=== PATIENT | female | born 1945 | race Caucasian/White ===

== ENCOUNTER 2017-03-25 10:02 | Emergency (ER) | payer MEDICARE, OTHER ==
[~2017-03-25] VITALS: Ht 162.6 cm; Wt 59.0 kg
[~2017-03-25 10:02] MED LIST: DOCU-94 PO; LEV25T PO; SENN-58 PO; TEMA30CA PO
[2017-03-25 13:30] LABS: Basophils # (auto) 0.1 uL; Basophils % (auto) 0.6 % (0.0-2.0); Eosinophils # (auto) 0.2 uL; Eosinophils % (auto) 2.6 % (0.0-7.0); Hematocrit 43.7 % (36.0-46.0); Hemoglobin 14.8 g/dL (12.2-16.2); Lymphocytes # (auto) 3.4 uL; Lymphocytes % (auto) 37.8 % (10.0-50.0); Mean Corpuscular Hemoglobin 30.9 pg (28.0-32.0); Mean Corpuscular Hgb Conc. 33.9 g/dL (32.0-36.0); Mean Corpuscular Volume 91.1 fL (80.0-100.0); Mean Platelet Volume 7.7 fL (6.9-10.8); Monocytes # (auto) 0.4 uL; Monocytes % (auto) 4.6 % (0.0-12.0); Neutrophils # (auto) 4.9 uL; Neutrophils % (auto) 54.4 % (37.0-80.0); Nucleated Red Blood Cells % 0.6 %; Platelet Count (auto) 371 10^3/uL (140-450); Red Cell Distribution Width 13.3 % (11.8-14.3)
[2017-03-25 13:56] LABS: Albumin 3.6 g/dL (3.4-5.0); Bilirubin, Total 0.4 mg/dL (0.2-1.0); Calcium 9.1 mg/dL (8.5-10.1); Potassium 4.2 mmol/L (3.5-5.1); Total Protein 7.4 g/dL (6.4-8.2)
[2017-03-25 15:26] VITALS: BP 154/95
== END 2017-03-25 16:32 | disposition home or self-care (01) ==
LOC: EDBD 10:02 → ER 10:02
DX: L30.9 Dermatitis, unspecified (principal); E78.5 Hyperlipidemia, unspecified; E07.9 Disorder of thyroid, unspecified; Z88.0 Allergy status to penicillin; Z79.899 Other long term (current) drug therapy
CPT/HCPCS: 36415; 80053; 85025

== ENCOUNTER 2018-08-26 10:14 | Emergency (ER) | payer MEDICARE, MEDICAID ==
[~2018-08-26] VITALS: Ht 162.6 cm; Wt 59.0 kg
[2018-08-26 10:21] VITALS: BP 157/92
[2018-08-26] MEDS ORDERED: SODIUM CHLORIDE 0.9% 1,000 ML IV ONE ×2 (10:21)
[2018-08-26 11:31] LABS: Basophils # (auto) 0.1 uL; Basophils % (auto) 1.1 % (0.0-2.0); Eosinophils # (auto) 0.1 uL; Eosinophils % (auto) 1.1 % (0.0-7.0); Hematocrit 41.8 % (36.0-46.0); Hemoglobin 14.4 g/dL (12.2-16.2); Lymphocytes # (auto) 2.4 uL; Mean Corpuscular Hemoglobin 30.5 pg (28.0-32.0); Mean Corpuscular Hgb Conc. 34.5 g/dL (32.0-36.0); Mean Corpuscular Volume 88.2 fL (80.0-100.0); Monocytes # (auto) 0.4 uL; Monocytes % (auto) 5.1 % (0.0-12.0); Neutrophils # (auto) 5.6 uL; Neutrophils % (auto) 64.7 % (37.0-80.0); Platelet Count (auto) 440 10^3/uL (140-450); Red Blood Cells 4.74 10^6/uL (4.0-5.20); Red Cell Distribution Width 13.3 % (11.8-14.3); White Blood Cell 8.6 10^3/uL (4.4-10.8)
[2018-08-26 11:50] LABS: Albumin 3.9 g/dL (3.4-5.0); Anion Gap 6 (5-15); Blood Urea Nitrogen 9 mg/dL (7-18); Calcium 9.1 mg/dL (8.5-10.1); Carbon Dioxide 28 mmol/L (21-32); Chloride 97 mmol/L (98-107); Glucose 124 mg/dL (74-106); Potassium 4.3 mmol/L (3.5-5.1); Sodium 131 mmol/L (136-145)
[2018-08-26 11:55] LABS: Alanine Aminotransferase 24 U/L (13-56); Alkaline Phosphatase 77 U/L (45-117); Aspartate Aminotransferase 16 U/L (15-37); BUN/Creatinine Ratio 18.8; Bilirubin, Total 0.3 mg/dL (0.2-1.0); GFR African American 162 mL/min; GFR Non-African American 134 mL/min; Total Protein 7.6 g/dL (6.4-8.2)
--- NOTE | 2018-08-26 13:38 | NUR ---
assessment Per ss consult [facility] for safety and PT eval. MON order sent to [facility]. Addendum: 08/26/18 at 1339 by Araceli RAMOS Amended: Links added. Addendum: 08/26/18 at 1345 by Araceli RAMOS amend above note. order sent to [facility].
--- NOTE | 2018-08-26 13:40 | NUR ---
re-assessment Per Tom patients son Juan Luis to be contacted. order sent to [facility]. 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 Addendum: 08/26/18 at 1342 by Araceli RAMOS Amended: Links added.
--- NOTE | 2018-08-26 15:50 | NUR ---
re-assessment Per [place] at [facility] will start on 08/27/18. Addendum: 08/26/18 at 1550 by Araceli RAMOS Amended: Links added.
== END 2018-08-26 14:31 | disposition home or self-care (01) ==
LOC: EDUNIT# 10:14 → EDBD 10:14 → ER 10:26 → EDUNIT# 10:26 → EDBD 10:26 → ER 14:31
DX: S16.1XXA Strain of muscle, fascia and tendon at neck level, initial encounter (principal); I10 Essential (primary) hypertension; W06.XXXA Fall from bed, initial encounter; Y93.89 Activity, other specified; Y99.8 Other external cause status; Y92.89 Other specified places as the place of occurrence of the external cause
CPT/HCPCS: 36415; 70450; 71045; 72125; 80053; 84484; 85025; 94761; 99284; J7030

== ENCOUNTER 2019-03-01 19:09 | Emergency (ER) | payer MEDICARE, OTHER ==
[~2019-03-01] VITALS: Ht 177.8 cm; Wt 61.2 kg
[2019-03-01 20:05] LABS: Basophils # (auto) 0.1 uL; Basophils % (auto) 0.8 % (0.0-2.0); Eosinophils # (auto) 0.1 uL; Eosinophils % (auto) 0.6 % (0.0-7.0); Hemoglobin 14.3 g/dL (12.2-16.2); Lymphocytes # (auto) 2.9 uL; Lymphocytes % (auto) 21.2 % (10.0-50.0); Mean Corpuscular Hemoglobin 30.4 pg (28.0-32.0); Mean Corpuscular Volume 89.3 fL (80.0-100.0); Monocytes # (auto) 0.8 uL; Monocytes % (auto) 5.7 % (0.0-12.0); Neutrophils # (auto) 9.7 uL; Neutrophils % (auto) 71.7 % (37.0-80.0); Nucleated Red Blood Cells % 0.1 %; Platelet Count (auto) 425 10^3/uL (140-450); Red Cell Distribution Width 13.2 % (11.8-14.3); White Blood Cell 13.5 10^3/uL (4.4-10.8)
[2019-03-01 20:25] LABS: Albumin 3.7 g/dL (3.4-5.0); BUN/Creatinine Ratio 12.9; Calcium 9.4 mg/dL (8.5-10.1); Potassium 4.4 mmol/L (3.5-5.1)
[2019-03-01 20:29] LABS: Bilirubin, Total 0.4 mg/dL (0.2-1.0); Total Protein 7.6 g/dL (6.4-8.2)
[2019-03-01] MEDS ORDERED: FLEET ENEMA(ADULT) 135 ML PR ONE (22:15)
[2019-03-01] MEDS ORDERED: GLYCERIN ADULT RECTAL SUPP PR ONE (22:15)
[2019-03-02] MEDS ORDERED: MAGNESIUM CITRATE SOLUTION 300 ML BTL PO ONE (02:15)
[2019-03-02 11:05] VITALS: BP 117/66
== END 2019-03-02 12:45 | disposition home or self-care (01) ==
LOC: EDUNIT# 19:09 → ER 19:09 → EDBD 19:09 → ER 03-02 12:45
DX: K59.00 Constipation, unspecified (principal); I10 Essential (primary) hypertension; Z74.01 Bed confinement status; Z88.0 Allergy status to penicillin; Z79.899 Other long term (current) drug therapy
CPT/HCPCS: 36415; 71045; 74176; 80053; 83690; 83735; 85025; 93005

== ENCOUNTER 2021-09-01 20:23 | Inpatient (IN) | payer MEDICARE, OTHER ==
[~2021-09-01] VITALS: Ht 170.2 cm; Wt 49.1 kg
[2021-09-01] MEDS ORDERED: SODIUM CHLORIDE 0.9% 500 ML IVB ONE (20:45)
[2021-09-01] MEDS ORDERED: MORPHINE SULFATE 4 MG/ML SYR/VIAL IV ONE (20:45)
[2021-09-01] MEDS ORDERED: ONDANSETRON HCL 4 MG/2 ML VIAL IV ONE (20:45)
[2021-09-01 21:21] LABS: Basophils # (auto) 0.3 10 ^3/uL (0-0.2); Basophils % (auto) 2.6 % (0.0-2.0); Eosinophils # (auto) 0.2 10 ^3/uL (0-0.8); Eosinophils % (auto) 1.7 % (0.0-7.0); Hematocrit 34.2 % (36.0-46.0); Lymphocytes # (auto) 1.7 10 ^3/uL (0.4-5.4); Lymphocytes % (auto) 15.8 % (10.0-50.0); Mean Corpuscular Hemoglobin 31.6 pg (28.0-32.0); Mean Corpuscular Volume 90.3 fL (80.0-100.0); Monocytes # (auto) 0.5 10 ^3/uL (0-1.3); Monocytes % (auto) 5.1 % (0.0-12.0); Neutrophils # (auto) 7.9 10 ^3/uL (1.6-8.6); Neutrophils % (auto) 74.8 % (37.0-80.0); Nucleated Red Blood Cells % 0.1 %; Red Blood Cells 3.79 10^6/uL (4.0-5.20); Red Cell Distribution Width 12.5 % (11.8-14.3); White Blood Cell 10.5 10^3/uL (4.4-10.8)
[2021-09-01 21:40] LABS: Albumin 3.1 g/dL (3.4-5.0); Amylase 39 U/L (25-115); Anion Gap 10 (5-15); BUN/Creatinine Ratio 27.1; Blood Urea Nitrogen 13 mg/dL (7-18); Calcium 8.7 mg/dL (8.5-10.1); Carbon Dioxide 23 mmol/L (21-32); Chloride 97 mmol/L (98-107); GFR African American 161 mL/min; GFR Non-African American 133 mL/min; Glucose 118 mg/dL (74-106); Lipase 73 U/L (73-393); Potassium 4.2 mmol/L (3.5-5.1); Sodium 130 mmol/L (136-145)
[2021-09-01 21:43] LABS: Alanine Aminotransferase 28 U/L (13-56); Alkaline Phosphatase 60 U/L (45-117); Aspartate Aminotransferase 27 U/L (15-37); Bilirubin, Total 0.3 mg/dL (0.2-1.0); Total Protein 6.6 g/dL (6.4-8.2)
[2021-09-02] MEDS ORDERED: ONDANSETRON HCL 4 MG/2 ML VIAL IV PRN (03:00)
[2021-09-02] MEDS ORDERED: ACETAMINOPHEN 325 MG TAB PO PRN (03:00)
[2021-09-02] MEDS ORDERED: HYDROcodone-ACET 5/325MG TAB PO PRN (03:00)
[2021-09-02] MEDS ORDERED: FLEET ENEMA(ADULT) 135 ML PR ONE (03:00)
[2021-09-02 06:02] LABS: Urine Bacteria FEW /hpf (None Seen); Urine Blood Negative /uL (Negative); Urine Specific Gravity 1.004 (1.001-1.035); Urine WBC 1 /hpf (0 - 5)
[2021-09-02] MEDS: LEVOTHYROXINE SODIUM 25 MCG TAB PO SCH (07:08)
[2021-09-02] MEDS ORDERED: ENALAPRIL MALEATE 10 MG TAB PO SCH (10:00)
[2021-09-02] MEDS: DOCUSATE SOD 100 MG CAP PO SCH ×2 (10:25→21:32)
[2021-09-02] MEDS: ENOXAPARIN SOD 40 MG/0.4 ML SYRINGE SC SCH (10:26)
[2021-09-02] MEDS: PANTOPRAZOLE 40 MG TAB PO SCH (10:26)
[2021-09-02] MEDS ORDERED: LACTULOSE 20Gm/30ML SOLN PO PRN (14:45)
[2021-09-02] MEDS ORDERED: cefTRIAXone 1GM/50ML D5W 50 ML IV ONE (14:45)
[2021-09-02 17:00] VITALS: BP 133/72
[2021-09-02] MEDS: metroNIDAZOLE 500MG/100ML 100 ML IV SCH (21:31)
[2021-09-02 21:53] VITALS: BP_SYST 138; BP_SYST 154; BP_DIAS 66; BP_DIAS 81
[2021-09-02] MEDS ORDERED: ATORVASTATIN 20 MG TAB PO SCH (22:00)
[2021-09-03] VITALS (7 sets, daily range): BP systolic 115–168; BP diastolic 60–81
[2021-09-03] MEDS: metroNIDAZOLE 500MG/100ML 100 ML IV SCH ×3 (05:54→21:38)
[2021-09-03] MEDS: LEVOTHYROXINE SODIUM 25 MCG TAB PO SCH (05:54)
[2021-09-03] MEDS: ENOXAPARIN SOD 40 MG/0.4 ML SYRINGE SC SCH (08:47)
[2021-09-03] MEDS: cefTRIAXone 1GM/50ML D5W 50 ML IV SCH (08:47)
[2021-09-03] MEDS: DOCUSATE SOD 100 MG CAP PO SCH ×2 (08:47→21:38)
[2021-09-03] MEDS: PANTOPRAZOLE 40 MG TAB PO SCH (08:47)
[2021-09-03 10:30] LABS: Basophils # (auto) 0 10 ^3/uL (0-0.2); Basophils % (auto) 0.7 % (0.0-2.0); Eosinophils # (auto) 0.1 10 ^3/uL (0-0.8); Eosinophils % (auto) 2.2 % (0.0-7.0); Hematocrit 34.5 % (36.0-46.0); Hemoglobin 11.7 g/dL (12.2-16.2); Lymphocytes % (auto) 29.6 % (10.0-50.0); Mean Corpuscular Hemoglobin 30.8 pg (28.0-32.0); Mean Corpuscular Hgb Conc. 33.9 g/dL (32.0-36.0); Mean Corpuscular Volume 90.8 fL (80.0-100.0); Monocytes # (auto) 0.4 10 ^3/uL (0-1.3); Monocytes % (auto) 6.6 % (0.0-12.0); Neutrophils # (auto) 4.2 10 ^3/uL (1.6-8.6); Neutrophils % (auto) 60.9 % (37.0-80.0); Nucleated Red Blood Cells % 0.1 %; Red Cell Distribution Width 12.5 % (11.8-14.3); White Blood Cell 6.8 10^3/uL (4.4-10.8)
[2021-09-03 11:00] LABS: Albumin 2.9 g/dL (3.4-5.0); Calcium 8.5 mg/dL (8.5-10.1); Magnesium 2.3 mg/dL (1.6-2.6); Potassium 3.8 mmol/L (3.5-5.1)
[2021-09-03 11:04] LABS: BUN/Creatinine Ratio 19.1; Bilirubin, Total 0.3 mg/dL (0.2-1.0); Total Protein 6.5 g/dL (6.4-8.2)
[2021-09-04 05:00] VITALS: BP 123/66
[2021-09-04] MEDS: metroNIDAZOLE 500MG/100ML 100 ML IV SCH ×3 (06:35→22:16)
[2021-09-04] MEDS: LEVOTHYROXINE SODIUM 25 MCG TAB PO SCH (06:35)
[2021-09-04 08:00] VITALS: BP 122/69
[2021-09-04 09:03] VITALS: BP 120/69
[2021-09-04] MEDS: ENOXAPARIN SOD 40 MG/0.4 ML SYRINGE SC SCH (09:32)
[2021-09-04] MEDS: cefTRIAXone 1GM/50ML D5W 50 ML IV SCH (09:32)
[2021-09-04] MEDS: DOCUSATE SOD 100 MG CAP PO SCH ×2 (09:32→22:16)
[2021-09-04 12:50] VITALS: BP 123/65
[2021-09-04] MEDS: POTASSIUM CHL 20 Meq TABLET PO SCH ×2 (14:00→14:22)
[2021-09-04 16:32] VITALS: BP 122/73
[2021-09-04 22:00] VITALS: BP 109/73
[2021-09-05 05:00] VITALS: BP 139/74
[2021-09-05] MEDS: LEVOTHYROXINE SODIUM 25 MCG TAB PO SCH (05:51)
[2021-09-05] MEDS: metroNIDAZOLE 500MG/100ML 100 ML IV SCH ×2 (05:51→13:56)
[2021-09-05 09:00] VITALS: BP 131/75
[2021-09-05] MEDS: cefTRIAXone 1GM/50ML D5W 50 ML IV SCH (09:00)
[2021-09-05] MEDS ORDERED: CIPR500T4 PO (09:37)
[2021-09-05] MEDS: ENOXAPARIN SOD 40 MG/0.4 ML SYRINGE SC SCH (10:00)
[2021-09-05] MEDS: DOCUSATE SOD 100 MG CAP PO SCH (10:00)
[2021-09-05 13:00] VITALS: BP 129/91
[2021-09-05 17:00] VITALS: BP 123/74
[2021-09-05 19:45] VITALS: BP 122/74
[2021-09-05 20:00] VITALS: BP 122/69
== END 2021-09-05 19:55 | disposition home or self-care (01) | DRG 389 ==
LOC: ER 20:23 → EDBD 20:23 → OVERFLOW 09-02 02:53 → WEST WING 09-02 16:50
PROVIDERS: ADMIT Nurse Practitioner; ATTEND Internal Medicine Nephrology
DX: K56.41 Fecal impaction (principal); N39.0 Urinary tract infection, site not specified; E03.9 Hypothyroidism, unspecified; E78.5 Hyperlipidemia, unspecified; I10 Essential (primary) hypertension; B96.20 Unspecified Escherichia coli [E. coli] as the cause of diseases classified elsewhere; Z20.822 Contact with and (suspected) exposure to COVID-19; Z74.01 Bed confinement status; Z90.81 Acquired absence of spleen; Z90.49 Acquired absence of other specified parts of digestive tract; Z90.710 Acquired absence of both cervix and uterus; Z87.820 Personal history of traumatic brain injury; Z83.3 Family history of diabetes mellitus; Z87.442 Personal history of urinary calculi; Z88.0 Allergy status to penicillin
CPT/HCPCS: 36415; 74176; 80053; 81001; 82150; 82306; 83690; 83735; 84132; 84443; 85025; 87086; 87088; 87186; 93005; 96361; 96365; 96372; 96375; G0378; J0696; J2405; J3490

== ENCOUNTER 2022-10-06 13:19 | Emergency (ER) | payer OTHER ==
[~2022-10-06] VITALS: Ht 175.3 cm; Wt 86.3 kg
[~2022-10-06 13:19] MED LIST changes: +CIPR-173 PO; +CIPR500T4 PO; +SENN-208 PO
[2022-10-06 18:09] VITALS: BP 131/82
== END 2022-10-06 19:39 | disposition home or self-care (01) ==
LOC: ER 13:19 → EDBD 13:19 → ER 19:37
DX: S09.8XXA Other specified injuries of head, initial encounter (principal); I10 Essential (primary) hypertension; E78.5 Hyperlipidemia, unspecified; Z88.0 Allergy status to penicillin; Z79.899 Other long term (current) drug therapy; W18.39XA Other fall on same level, initial encounter; Y93.89 Activity, other specified; Y92.098 Other place in other non-institutional residence as the place of occurrence of the external cause; Y99.8 Other external cause status
CPT/HCPCS: 70450; 74176

== ENCOUNTER 2024-03-28 16:21 | Emergency (ER) | payer OTHER, MEDICAID ==
[~2024-03-28] VITALS: Ht 170.2 cm; Wt 54.5 kg
[2024-03-28] MEDS: SODIUM CHLORIDE 0.9% 1,000 ML IV ONE (16:30)
[2024-03-28] MEDS: MORPHINE SULFATE 4 MG/ML SYR/VIAL IV ONE (16:30)
[2024-03-28] MEDS: ONDANSETRON HCL 4 MG/2 ML VIAL IV ONE (16:30)
--- NOTE | 2024-03-28 16:30 | ECG ---
[facility] Test Date: 2024-03-28 Test Time: 16:26:07 Pat Name: VINH GOLDSTEIN Department: ER Room: Gender: F Patient Support Representative: NISSA : 1945 Requested By: EMERGENCY EMERGENCY Order Number: [id number] Reading MD: Travon Ruiz Measurements Intervals [place] Rate: 100 P: 74 [place]: 130 QRS: 104 QRSD: 76 T: 52 QT: 327 QTc: 422 Interpretive Statements Sinus tachycardia Right atrial enlargement Right axis deviation Electronically Signed On 03-31-2024 10:24:12 PST by Travon Ruiz Please click the below link to view image of tracing.
--- NOTE | 2024-03-28 16:49 | ED.PDOC ---
GI ASSESSMENT HPI Comments 78 Y F BIBJosefina, with PMHX of HTN, HLD, hyperthyroidism, and bowel blockages presents to the ED with CC of abdominal pain. Per EMS, patient has been experiencing ABD pain since 03/27/24 with intermittent vomiting. Per EMS patient's daughter states that she has dark foul vomit, which she believes can be associated with a bowel blockage; as patient has experienced episodes like this in the past. Patient denies tobacco usage, ETOH, or illicit drugs. Time Seen by MD: 16:30 Primary Care Provider: CHANTALE Reviewed Notes: Nurses Notes, Cost Report Clerk Notes, Medications, Allergies Allergies: Coded Allergies: Penicillin G (Verified Allergy, Unknown, 08/26/13) Home Meds Active Scripts Sennosides-Docusate Sodium (Senna-Plus) 1 Tab Tab, 2 TAB PO qhs for 10 Days, #20 TAB Prov:HARRISON ARMSTRONG MD 01/17/22 Ciprofloxacin Hcl (Cipro) 500 Mg Tab, 1 TAB PO BID for 7 Days, #14 TAB Prov:HARRISON ARMSTRONG MD 01/17/22 Ciprofloxacin Hcl (Ciprofloxacin Hcl) 500 Mg Tab, 1 TAB PO BID for 5 Days, #10 TAB Prov:RACHELLE ROMERO MD 09/05/21 Senna (Senokot) 8.6 Mg Tab, 1 TAB PO BID, #40 TAB [facility] 01/16/17 Docusate Sodium (Colace) 100 Mg Cap, 1 CAP PO BID, #60 CAP 2 Refills [facility] 01/16/17 Reported Medications Temazepam (Temazepam) 30 Mg Cap, 1 CAP PO HS, #30 CAP 1 Refill 09/07/16 Levothyroxine Sodium (Levothyroxine Sodium) 25 Mcg Tab, 0 PO DAILY, TAB 09/07/16 Information Source: Patient Mode of Arrival: EMS Timing: Hours Duration: Since onset Prehospital treatment: None Vomitus: Tarry Black Severity: Mild Recent: None Recent Hx of: None Pain Location: Epigastric Modifying Factors: Nothing Associated sign and symptoms: Vomiting Past Medical History PAST MEDICAL HISTORY: High Lipids, HTN Surgical History: Denies all surgeries HOUSING SPECIALIST History: No Pertinent HOUSING SPECIALIST History Family History Family History: Unobtainable Social History Smoker: Non-Smoker Alcohol: Denies ETOH Use Drugs: Denies Drug Use Lives In: Home Constitutional: denies: chills, diaphoresis, fatigue, fever, malaise, sweats, weakness, others EENTM: denies: blurred vision, double vision, ear bleeding, ear discharge, ear drainage, ear pain, ear ringing, eye pain, eye redness, hearing loss, mouth pain, mouth swelling, nasal discharge, nose bleeding, nose congestion, nose pain, photophobia, tearing, throat pain, throat swelling, voice changes, others Respiratory: denies: cough, hemoptysis, orthopnea, SOB at rest, shortness of breath, SOB with excertion, stridor, wheezing, others Cardiovascular: denies: chest pain, dizzy spells, diaphoresis, Dyspnea on exertion, edema, irregular heart beat, left arm pain, lightheadedness, palpitations, PND, syncope, others Gastrointestinal: reports: abdominal pain, vomiting; denies: abdomen distended, blood streaked bowels, constipated, diarrhea, dysphagia, difficulty swallowing, hematemesis, melena, nausea, poor appetite, poor fluid intake, rectal bleeding, rectal pain, others Genitourinary: denies: abnormal vagina bleeding, burning, dyspareunia, dysuria, flank pain, frequency, hematuria, incontinence, pain, , vagina discharge, urgency, others Neurological: denies: dizziness, fainting, headache, left sided numbness, left sided weakness, numbness, paresthesia, pre-existing deficit, right sided numbness, right sided weakness, seizure, speech problems, tingling, tremors, weakness, others Musculoskeletal: denies: back pain, gout, joint pain, joint swelling, muscle pain, muscle stiffness, neck pain, others Integumetry: denies: bruises, change in color, change in hair/nails, dryness, laceration, lesions, lumps, rash, wounds, others Allergic/Immunocompromised: denies: Difficulty Healing, Frequent Infections, Hives, Itching, others Hematologic/Lymphatic: denies: anemia, blood clots, easy bleeding, easy bruising, swollen glands, others Endocrine: denies: excessive hunger, excessive sweating, excessive thirst, excessive urination, flushing, intolerance to cold, intolerance to heat, unexplained weight gain, unexplained weight loss, others Psychiatric: denies: anxiety, bipolar disorder, depression, hopeless, panic disorder, schizophrenia, sleepless, suicidal, others All Other Systems: Reviewed and Negative Physical Exam General Appearance: No Apparent Distress, Normal HEENT: Normal ENT Inspection, Pharynx Normal, TMs Normal Neck: Full Range of Motion, Non-Tender, Normal, Normal Inspection Respiratory: Chest Non-Tender, Lungs Clear, No Accessory Muscle Use, No Respiratory Distress, Normal Breath Sounds Cardiovascular: No Edema, No JVD, No Murmur, No Gallop, Normal Peripheral Pulses, Regular Rate/Rhythm Breast Exam: Deferred Gastrointestinal: Diffuse (abdominal tenderness), No Organomegaly, Non Tender, No Pulsatile Mass, Normal Bowel Sounds, Soft Genitalia: Deferred Pelvic: Deferred Rectal: Deferred Extremities: No calf tenderness, Normal capillary refill, Normal inspection, Normal range of motion, Non-tender, No pedal edema Musculoskeletal : Location: Left Extremity Location: Arm (left arm amputee ) Apperance: Normal Neurologic: Alert, dental surgeon II-XII nml as Tested, No Motor Deficits, Normal Affect, Normal Mood, No Sensory Deficits Cerebellar Function: Normal Reflexes: Normal Skin: Dry, Normal Color, Warm Lymphatic: No Adenopathy EKG EKG : Pulse Rate (adult): 100 [place]: Normal Cardiac Rhythm: ST Block: None Hypertrophy: None ST: Normal Was a procedure done? Was a procedure done?: No GI differential Dx Differential Diagnosis: Bowel Obstruction, Gastroenteritis, Dehydration, Electrolyte Imbalance, Food Poisoning, Bacterial, Viral, Impaction X-Ray, Labs, Meds, VS Vital Signs Date Time Temp Pulse Resp B/P (MAP) Pulse Ox O2 Delivery O2 Flow Rate FiO2 03/28/24 17:30 100 17 96 Room Air* 0 21 03/28/24 17:30 97.9 100 17 116/70 (85) 98 97.9 03/28/24 17:00 99 17 116/70 03/28/24 16:49 100 03/28/24 16:30 100 18 116/70 03/28/24 16:30 97.9 101 16 116/70 (85) 98 03/28/24 16:26 100 Lab Test 03/28/24 18:22 03/28/24 17:06 Range/Units Troponin I High Sensitivity 14 11 </=34 ng/L White Blood Count 13.9 H 4.4-10.8 10^3/uL Red Blood Count 4.88 4.0-5.20 10^6/uL Hemoglobin 15.1 12.2-16.2 g/dL Hematocrit 44.5 36.0-46.0 % Mean Corpuscular Volume 91.1 80.0-100.0 fL Mean Corpuscular Hemoglobin 31.0 28.0-32.0 pg Mean Corpuscular Hemoglobin Concent 34.1 32.0-36.0 g/dL Red Cell Distribution Width 13.4 11.8-14.3 % Platelet Count 343 140-450 10^3/uL Mean Platelet Volume 7.7 6.9-10.8 fL Neutrophils (%) (Auto) 87.7 H 37.0-80.0 % Lymphocytes (%) (Auto) 8.8 L 10.0-50.0 % Monocytes (%) (Auto) 3.3 0.0-12.0 % Eosinophils (%) (Auto) 0.0 0.0-7.0 % Basophils (%) (Auto) 0.2 0.0-2.0 % Neutrophils # (Auto) 12.2 H 1.6-8.6 10 ^3/uL Lymphocytes # (Auto) 1.2 0.4-5.4 10 ^3/uL Monocytes # (Auto) 0.5 0-1.3 10 ^3/uL Eosinophils # (Auto) 0 0-0.8 10 ^3/uL Basophils # (Auto) 0 0-0.2 10 ^3/uL Nucleated Red Blood Cells 0.0 % Sodium Level 128 L 136-145 mmol/L Potassium Level 4.4 3.5-5.1 mmol/L Chloride Level 91 L 98-107 mmol/L Carbon Dioxide Level 29 20-31 mmol/L Anion Gap 8 5-15 Blood Urea Nitrogen 19 9-23 mg/dL Creatinine 0.57 0.550-1.02 mg/dL Glomerular Filtration Rate Calc 92 >90 mL/min BUN/Creatinine Ratio 33.3 H 10.0-20.0 Serum Glucose 153 H 74-106 mg/dL Calcium Level 10.7 H 8.7-10.4 mg/dL Total Bilirubin 1.1 H 0.2-1.0 mg/dL Aspartate Amino Transferase (AST) 25 13-40 U/L Alanine Aminotransferase (ALT) 22 7-40 U/L Alkaline Phosphatase 70 46-116 U/L Total Protein 6.4 5.7-8.2 g/dL Albumin 4.1 3.2-4.8 g/dL Lipase 22 12-53 U/L Current Medications Medications (Trade) Dose Ordered Sig/Niranjan Route Start Time Stop Time Status Last Admin Sodium Chloride 1,000 ml @ 1,000 mls/hr Q1H ONCE IV 03/28/24 16:30 03/28/24 17:29 DC 03/28/24 16:30 Ondansetron HCl (Zofran) 4 mg ONCE ONCE IV 03/28/24 16:30 03/28/24 16:31 DC 03/28/24 16:30 Morphine Sulfate 4 mg ONCE ONCE IV 03/28/24 16:30 03/28/24 16:31 DC 03/28/24 16:30 [place] [id number] Ph: [phone] DIAGNOSTIC IMAGING Diagnostic Imaging Report : [id number] Signed PATIENT: VINH GOLDSTEIN ACCT: [id number] UNIT: [id number] : 1945 LOC: ER ROOM / BED: / AGE / SEX: 78 / F ADM STATUS: REG ER SERVICE 28 ORDERING PHYSICIAN: ANA CHAVEZ MD PROCEDURE(s): CXRP - CHEST PORTABLE REASON: abdominal pain ORDER NUMBER(s): [id number], ACCESSION NUMBER(s): [id number] CHEST RADIOGRAPH Indication: abdominal pain Technique: Single frontal view of the chest was obtained COMPARISON: CHEST PORTABLE on DOS: 03/01/19 FINDINGS: Lines and Tubes: None Lungs: Lungs are hyperinflated suggestive of COPD. Pleura: No effusion. No pneumothorax. Cardiomediastinal contours: Unremarkable Bones: Unremarkable IMPRESSION: No acute disease. ATED BY: PATRICK WISE MD DICTATED DATE/TIME: 03/28/241699 SIGNED BY: PATRICK WISE MD SIGNED DATE/TIME: 03/28/241699 CC: Time of 1ST Reevaluation: 17:00 Reevaluation 1ST: Unchanged Patient Education/Counseling: Diagnosis, Treatment Family Education/Counseling: No Family Present Additional Information I reviewed the following notes from patient's past medical encounters: 09/02/21 DX ACUTE ABD PAIN The following tests were ordered, and results were reviewed by me: EKG, CXR, CT AB PEL WITH IV CONTRAST, TROPONIN X3, UA, LIPASE, CMP, CBC, Additional Information was gathered from interviewing the following independent historians: EMS I reviewed and agreed with the following test results read by other providers: CXR, CT I discussed treatment and results with medical personnel and family. Departure 1 Departure Time of Disposition: 21:41 Impression: Primary Impression: Nonspecific abdominal pain Additional Impression: Constipation Qualified Codes: K59.00 - Constipation, unspecified Disposition: HOME / SELF CARE / HOMELESS Condition: Stable Additional Instructions: Reassessed patient, vital signs stable. Denies any new symptoms. Patient is able to tolerate PO and ambulate/be mobile at their baseline without concern. Risks and benefits of all medications given or prescribed, if any, discussed. All lab work, imaging and diagnostic studies were reviewed by me. The patient was counseled extensively on my clinical impression, diagnosis, expected course of the disease, and plan, including their follow-up care. Will discharge patient. Patient instructed to follow up with Primary Care Physician within 24-48 hours. Strict return precautions given for further exacerbation of symptoms or for new symptoms. The patient was given the opportunity to ask questions and all questions were answered by myself and the nursing/tech staff. Patient is in agreement with the care plan. The patient verbally expressed understanding of the discharge instructions, including the reasons to return to the Emergency Department. e-Prescriptions Lactulose (Lactulose) 10 Gm/15 Ml Chely 10 GM PO BID, #90 ML Prov: QUENTIN SANTIZO MD 03/28/24 Discharged With: Self Critical Care Note Critical Care Time?: No Stability Stability form required: No Heart Score Heart Score: Heart Score Response (Comments) Value History N/A 0 EKG N/A 0 Age N/A 0 Risk Factors N/A 0 Troponin N/A 0 Total 0 I personally scribed for ANA CHAVEZ MD ([email or web address]) on 03/28/24 at 16:49. Electronically submitted by Sujatha Sapp ([email or web address]). I personally scribed for ANA CHAVEZ MD ([email or web address]) on 03/28/24 at 16:52. Electronically submitted by Sujatha Sapp ([email or web address]). I personally scribed for ANA CHAVEZ MD ([email or web address]) on 03/28/24 at 17:56. Electronically submitted by Sujatha Sapp [email or web address]). ANA CHAVEZ MD Mar 28, 2024 16:49 QUENTIN SANTIZO MD Mar 28, 2024 21:54
--- NOTE | 2024-03-28 17:04 | DVH ---
CHEST RADIOGRAPH Indication: abdominal pain Technique: Single frontal view of the chest was obtained COMPARISON: CHEST PORTABLE on DOS: 03/01/19 FINDINGS: Lines and Tubes: None Lungs: Lungs are hyperinflated suggestive of COPD. Pleura: No effusion. No pneumothorax. Cardiomediastinal contours: Unremarkable Bones: Unremarkable IMPRESSION: No acute disease.
[2024-03-28 17:28] LABS: Basophils # (auto) 0 10 ^3/uL (0-0.2); Basophils % (auto) 0.2 % (0.0-2.0); Eosinophils # (auto) 0 10 ^3/uL (0-0.8); Hematocrit 44.5 % (36.0-46.0); Hemoglobin 15.1 g/dL (12.2-16.2); Lymphocytes # (auto) 1.2 10 ^3/uL (0.4-5.4); Lymphocytes % (auto) 8.8 % (10.0-50.0); Mean Corpuscular Hgb Conc. 34.1 g/dL (32.0-36.0); Mean Corpuscular Volume 91.1 fL (80.0-100.0); Monocytes # (auto) 0.5 10 ^3/uL (0-1.3); Monocytes % (auto) 3.3 % (0.0-12.0); Neutrophils # (auto) 12.2 10 ^3/uL (1.6-8.6); Neutrophils % (auto) 87.7 % (37.0-80.0); Platelet Count (auto) 343 10^3/uL (140-450); Red Blood Cells 4.88 10^6/uL (4.0-5.20); Red Cell Distribution Width 13.4 % (11.8-14.3); White Blood Cell 13.9 10^3/uL (4.4-10.8)
[2024-03-28 17:30] VITALS: BP 116/70; PULSE 100; RESP 17; TEMP 97.9; O2SAT 96
[2024-03-28 17:48] LABS: Alanine Aminotransferase 22 U/L (7-40); Albumin 4.1 g/dL (3.2-4.8); Alkaline Phosphatase 70 U/L (46-116); Anion Gap 8 (5-15); Aspartate Aminotransferase 25 U/L (13-40); BUN/Creatinine Ratio 33.3 (10.0-20.0); Bilirubin, Total 1.1 mg/dL (0.2-1.0); Blood Urea Nitrogen 19 mg/dL (9-23); Carbon Dioxide 29 mmol/L (20-31); Potassium 4.4 mmol/L (3.5-5.1); Total Protein 6.4 g/dL (5.7-8.2)
[2024-03-28 18:04] LABS: Calcium 10.7 mg/dL (8.7-10.4); Chloride 91 mmol/L (98-107); Glucose 153 mg/dL (74-106); Sodium 128 mmol/L (136-145)
[2024-03-28 18:19] LABS: Lipase 22 U/L (12-53)
[2024-03-28] MEDS: IOHEXOL 300 MG/ML 100ML BOTTLE IJ ONE (21:52)
--- NOTE | 2024-03-28 22:09 | DVH ---
Exam: CT CT AB PEL WITH IV CON ONLY History: abdominal pain Comparison Study: None available at time of dictation. Technique: Multidetector spiral CT of the abdomen and pelvis was performed from lung bases to pubic s ymphysis. Intravenous contrast was administered during this examination. Portal venous imaging was obtained. Axial, coronal and sagittal multiplanar reformats were performed by the technologist on a separate workstation. Radiation Dose : 1. Abdomen/Pelvis: CTDIvol 6 mGy, DLP 273 mGy*cm. Findings: Lung Bases: No acute or significant lung base finding. Normal heart size. No pleural or pericardial effusion. Liver: The liver is normal in size. No focal lesions. Normal hepatic vascular enhancement. Gallbladder and Biliary Tree: Cholecystectomy with mild intrahepatic and extrahepatic biliary ductal dilatation. This is within normal limits for patient's age and postsurgical status. Spleen: Is not visualized. Pancreas: The pancreas is normal in appearance without focal lesions or abnormal enhancement. Postsur gical changes near the pancreatic tail. Adrenal Glands: Unremarkable Kidneys: Kidneys demonstrate normal symmetric enhancement without focal lesions, calculi or hydroneph rosis. Bladder: Unremarkable Bowel: The stomach is grossly normal in appearance. Severe fecal retention at the rectum. The append ix is not visualized; however, no secondary findings of acute appendicitis identified. Ascites: Absent Lymphadenopathy: No mesenteric, retroperitoneal or periportal lymphadenopathy. Abdominal Wall and Mesentery: Unremarkable. Vasculature: The visualized abdominal aorta is normal in size and caliber. Abdominal and pelvic vess els demonstrate normal enhancement. Infrarenal IVC filter. Pelvic Organs: Unremarkable Musculoskeletal: No aggressive focal bony lesions, acute fractures or dislocation. Mild compression d eformity at the superior endplate of L3 which appears acute or subacute. IMPRESSION: Large fecal impaction. Moderate fecal retention throughout the colon. Other findings as described above.
[2024-03-28] MEDS ORDERED: LACT10SO3 PO (22:28)
== END 2024-03-28 23:56 | disposition home or self-care (01) ==
LOC: ER 16:21 → EDBD 16:21 → ER 23:56
DX: R10.9 Unspecified abdominal pain (principal); K59.00 Constipation, unspecified; I10 Essential (primary) hypertension; E78.5 Hyperlipidemia, unspecified; Z79.899 Other long term (current) drug therapy; Z88.0 Allergy status to penicillin
CPT/HCPCS: 36415; 71045; 74177; 80053; 83690; 84484; 85025; 93005; 96361; 96374; 96375; 99285; J2270; J2405; J7030; Q9967

== ENCOUNTER 2024-11-30 09:11 | Emergency (ER) | payer OTHER, MEDICAID ==
[~2024-11-30] VITALS: Ht 172.7 cm; Wt 59.0 kg
[~2024-11-30 09:11] MED LIST changes: +LACT10SO3 PO
--- NOTE | 2024-11-30 09:44 | ED.PDOC ---
History of Present Illness HPI Comments 79-year-old female BIBA with prior medical history of dementia, TBI: Surgical history of deformity to the right ankle, left arm amputation and a chief complaint of N/V/D. EMS report that the patient has been having N/V/D for three days and lives with her son. Patients Son informed EMS the the patient had abdomen is distention at 6:00 a.m. this morning with no abdominal pain. Time Seen by MD: 09:20 Primary Care Provider: CHANTALE Jacobson Notes: Nurses Notes, Medications, Allergies Allergies: Coded Allergies: Penicillin G (Verified Allergy, Unknown, 08/26/13) Home Meds Active Scripts Lactulose (Lactulose) 10 Gm/15 Ml Chely, 10 GM PO BID, #90 ML Prov:QUENTIN SANTIZO MD 03/28/24 Sennosides-Docusate Sodium (Senna-Plus) 1 Tab Tab, 2 TAB PO qhs for 10 Days, #20 TAB Prov:HARRISON ARMSTRONG MD 01/17/22 Ciprofloxacin Hcl (Cipro) 500 Mg Tab, 1 TAB PO BID for 7 Days, #14 TAB Prov:HARRISON ARMSTRONG MD 01/17/22 Ciprofloxacin Hcl (Ciprofloxacin Hcl) 500 Mg Tab, 1 TAB PO BID for 5 Days, #10 TAB Prov:RACHELLE ROMERO MD 09/05/21 Senna (Senokot) 8.6 Mg Tab, 1 TAB PO BID, #40 TAB [facility] 01/16/17 Docusate Sodium (Colace) 100 Mg Cap, 1 CAP PO BID, #60 CAP 2 Refills Prov[facility] 01/16/17 Reported Medications Temazepam (Temazepam) 30 Mg Cap, 1 CAP PO HS, #30 CAP 1 Refill 09/07/16 Levothyroxine Sodium (Levothyroxine Sodium) 25 Mcg Tab, 0 PO DAILY, TAB 09/07/16 Information Source: Patient Mode of Arrival: EMS Severity: Moderate Timing: Days Duration: Since onset, Days Prehospital treatment: None Past Medical History PAST MEDICAL HISTORY: Dementia Past Medical History (Other): TBI Surgical History: Denies all surgeries MANAGER UNIX History: No Pertinent MANAGER UNIX History Family History Family History: Reviewed,noncontributory to illness, Unknown Social History Smoker: Non-Smoker Alcohol: Denies ETOH Use Drugs: Denies Drug Use Lives In: Home Constitutional: denies: chills, diaphoresis, fatigue, fever, malaise, sweats, weakness, others EENTM: denies: blurred vision, double vision, ear bleeding, ear discharge, ear drainage, ear pain, ear ringing, eye pain, eye redness, hearing loss, mouth pain, mouth swelling, nasal discharge, nose bleeding, nose congestion, nose pain, photophobia, tearing, throat pain, throat swelling, voice changes, others Respiratory: denies: cough, hemoptysis, orthopnea, SOB at rest, shortness of breath, SOB with excertion, stridor, wheezing, others Cardiovascular: denies: chest pain, dizzy spells, diaphoresis, Dyspnea on exertion, edema, irregular heart beat, left arm pain, lightheadedness, palpitations, PND, syncope, others Gastrointestinal: reports: abdomen distended, diarrhea, nausea, vomiting; denies: abdominal pain, blood streaked bowels, constipated, dysphagia, difficulty swallowing, hematemesis, melena, poor appetite, poor fluid intake, rectal bleeding, rectal pain, others Genitourinary: denies: abnormal vagina bleeding, burning, dyspareunia, dysuria, flank pain, frequency, hematuria, incontinence, pain, , vagina discharge, urgency, others Neurological: denies: dizziness, fainting, headache, left sided numbness, left sided weakness, numbness, paresthesia, pre-existing deficit, right sided numbness, right sided weakness, seizure, speech problems, tingling, tremors, weakness, others Musculoskeletal: denies: back pain, gout, joint pain, joint swelling, muscle pain, muscle stiffness, neck pain, others Integumetry: denies: bruises, change in color, change in hair/nails, dryness, laceration, lesions, lumps, rash, wounds, others Allergic/Immunocompromised: denies: Difficulty Healing, Frequent Infections, Hives, Itching, others Hematologic/Lymphatic: denies: anemia, blood clots, easy bleeding, easy bruis ing, swollen glands, others Endocrine: denies: excessive hunger, excessive sweating, excessive thirst, exc essive urination, flushing, intolerance to cold, intolerance to heat, unexplained weight gain, unexplained weight loss, others Psychiatric: denies: anxiety, bipolar disorder, depression, hopeless, panic disorder, schizophrenia, sleepless, suicidal, others All Other Systems: Reviewed and Negative Physical Exam General Appearance: Moderate Distress, Normal HEENT: Normal ENT Inspection, Pharynx Normal, TMs Normal Neck: Full Range of Motion, Non-Tender, Normal, Normal Inspection Respiratory: Chest Non-Tender, Lungs Clear, No Accessory Muscle Use, No Respiratory Distress, Normal Breath Sounds Cardiovascular: No Edema, No JVD, No Murmur, No Gallop, Normal Peripheral Pulses, Regular Rate/Rhythm Breast Exam: Deferred Gastrointestinal: No Organomegaly, Non Tender, No Pulsatile Mass, Normal Bowel Sounds, Soft Genitalia: Deferred Pelvic: Deferred Rectal: Deferred Extremities: No calf tenderness, Normal capillary refill, Non-tender, No pedal edema, Other (Left above-elbow amputation many years ago) Musculoskeletal : Apperance: Normal Neurologic: Disoriented, No Motor Deficits, Normal Mood, No Sensory Deficits Cerebellar Function: NOT DONE Reflexes: NOT DONE Skin: Dry, Normal Color, Warm Peripheral Pulses: 3+ Radial (R), 3+ Radial (L) Lymphatic: No Adenopathy Was a procedure done? Was a procedure done?: No Differential Dx Considerations may include: Anemia Electrolyte imbalance X-Ray, Labs, Meds, VS Vital Signs Date Time Temp Pulse Resp B/P (MAP) Pulse Ox O2 Delivery O2 Flow Rate FiO2 11/30/24 09:13 98.4 86 16 109/63 96 98.4 Lab Test 11/30/24 10:33 Range/Units White Blood Count 6.7 4.4-10.8 10^3/uL Red Blood Count 4.20 4.0-5.20 10^6/uL Hemoglobin 13.3 12.2-16.2 g/dL Hematocrit 39.0 36.0-46.0 % Mean Corpuscular Volume 92.9 80.0-100.0 fL Mean Corpuscular Hemoglobin 31.6 28.0-32.0 pg Mean Corpuscular Hemoglobin Concent 34.0 32.0-36.0 g/dL Red Cell Distribution Width 12.9 11.8-14.3 % Platelet Count 256 140-450 10^3/uL Mean Platelet Volume 7.8 6.9-10.8 fL Neutrophils (%) (Auto) 78.2 37.0-80.0 % Lymphocytes (%) (Auto) 12.9 10.0-50.0 % Monocytes (%) (Auto) 8.4 0.0-12.0 % Eosinophils (%) (Auto) 0.4 0.0-7.0 % Basophils (%) (Auto) 0.1 0.0-2.0 % Neutrophils # (Auto) 5.2 1.6-8.6 10 ^3/uL Lymphocytes # (Auto) 0.9 0.4-5.4 10 ^3/uL Monocytes # (Auto) 0.6 0-1.3 10 ^3/uL Eosinophils # (Auto) 0 0-0.8 10 ^3/uL Basophils # (Auto) 0 0-0.2 10 ^3/uL Nucleated Red Blood Cells 0.1 % Sodium Level 132 L 136-145 mmol/L Potassium Level 2.7 L 3.5-5.1 mmol/L Chloride Level 96 L 98-107 mmol/L Carbon Dioxide Level 27 20-31 mmol/L Anion Gap 9 5-15 Blood Urea Nitrogen 10 9-23 mg/dL Creatinine 0.39 L 0.550-1.02 mg/dL Glomerular Filtration Rate Calc 100 >90 mL/min BUN/Creatinine Ratio 25.6 H 10.0-20.0 Serum Glucose 113 H 74-106 mg/dL Calcium Level 8.9 8.7-10.4 mg/dL Patient unable to answering any questions. She has been vomiting. Diarrhea. Vitals stable. Potassium is low. Was given potassium. Placed a rectal tube. Possible colitis. WBC within normal limits. Hemoglobin within normal limits. Establish intravenous access. Was given fluids. Was given Flagyl. EKG reviewed does not show any acute process. Unstable for transfer. Waiting for family. Time of 1ST Reevaluation: 13:46 Reevaluation 1ST: Unchanged Patient Education/Counseling: Diagnosis, Treatment, Prognosis Family Education/Counseling: No Family Present SEPSIS Sepsis Screen Physician Orders Urinalysis (11/30/24 09:28) Sodium Chloride 0.9% (11/30/24 09:30) Saline Lock (11/30/24 12:48) * Wound Consult (11/30/24 ) Insert/Manage Urinary Catheter QSHIFT (11/30/24 13:41) Insert Rectal Tube (11/30/24 13:41) Vital Signs Date Time Temp Pulse Resp B/P (MAP) Pulse Ox O2 Delivery O2 Flow Rate FiO2 11/30/24 09:13 98.4 86 16 109/63 96 98.4 Laboratory Tests Test 11/30/24 10:33 White Blood Count 6.7 10^3/uL (4.4-10.8) Departure 1 Departure Time of Disposition: 13:48 Impression: Primary Impression: Metabolic encephalopathy Additional Impressions: Colitis Hypokalemia Disposition: ADMITTED INPATIENT Admit to: Med Surg Condition: Guarded Critical Care Note Critical Care Time?: Yes (90 min-critical care time only) Critical care comment: Continues to have diarrhea. Fluids. Stability Stability form required: No Heart Score Heart Score: Heart Score Response (Comments) Value History Slightly Suspicious 0 EKG Normal 0 Age >65 2 Risk Factors >3 or Hx ASHD 2 Troponin Normal limit 0 Total 4 I personally scribed for DAVIN YORK MD ([email or web address]) on 11/30/24 at 09:44. Electronically submitted by Eddi Ventura ([email or web address]). DAVIN YORK MD Nov 30, 2024 09:44
[2024-11-30 10:52] LABS: Hematocrit 39.0 % (36.0-46.0); Hemoglobin 13.3 g/dL (12.2-16.2); Mean Corpuscular Hemoglobin 31.6 pg (28.0-32.0); Mean Corpuscular Volume 92.9 fL (80.0-100.0); Nucleated Red Blood Cells % 0.1 %
[2024-11-30 11:02] LABS: Anion Gap 9 (5-15); Calcium 8.9 mg/dL (8.7-10.4); Carbon Dioxide 27 mmol/L (20-31)
[2024-11-30 11:04] LABS: Chloride 96 mmol/L (98-107); Potassium 2.7 mmol/L (3.5-5.1); Sodium 132 mmol/L (136-145)
[2024-11-30 11:07] LABS: BUN/Creatinine Ratio 25.6 (10.0-20.0); Blood Urea Nitrogen 10 mg/dL (9-23); Glucose 113 mg/dL (74-106)
[2024-11-30 12:55] VITALS: PULSE 79; RESP 15; O2SAT 98
[2024-11-30 14:18] LABS: Urine Protein, UAD Negative (Negative)
[2024-11-30] MEDS: SODIUM CHLORIDE 0.9% 1,000 ML IV ONE ×2 (16:02→16:27)
[2024-11-30] MEDS: cefTRIAXone 1GM/50ML D5W 50 ML IV ONE (16:26)
[2024-11-30] MEDS: POTASSIUM CHL 20MEQ/100ML 100 ML IV SCH (16:27)
[2024-11-30 19:30] VITALS: PULSE 84; RESP 13; O2SAT 98
[2024-11-30 20:30] VITALS: BP 133/79; PULSE 82; RESP 16; TEMP 98.9; O2SAT 96
== END 2024-11-30 19:13 | disposition home or self-care (01) ==
LOC: EDBD 09:11 → ER 09:11
DX: G93.41 Metabolic encephalopathy (principal); K52.9 Noninfective gastroenteritis and colitis, unspecified; E87.6 Hypokalemia; Z88.0 Allergy status to penicillin; Z79.890 Hormone replacement therapy
CPT/HCPCS: 36415; 51702; 80048; 81001; 85025; 96365; 96366; 96368; 99285; A4315; J0696; J3480; J3490; J7030